=== PATIENT | male | born 1980 | race African-American/Black ===

== ENCOUNTER 2022-01-18 18:13 | Emergency (ER) | payer OTHER ==
[~2022-01-18] VITALS: Ht 185.4 cm; Wt 105.0 kg
[2022-01-18 18:43] VITALS: BP 133/91
[2022-01-18] MEDS ORDERED: DIAZEPAM 5 MG TABLET PO ONE (22:15)
[2022-01-18] MEDS ORDERED: KETOROLAC 60MG/2ML VIAL IM ONE (22:15)
[2022-01-18] MEDS ORDERED: TETANUS, DIPHTHERIA, PERTUSSIS VAC/PF 0.5ML (>10YR OLD) IM ONE (22:15)
[2022-01-18] MEDS ORDERED: LIDOCAINE 5% PATCH TOP SCH (22:15)
[2022-01-18] MEDS ORDERED: BACITRACIN 15GM TUBE TOP ONE (23:45)
== END 2022-01-19 00:21 | disposition home or self-care (01) ==
LOC: ER 18:13
DX: M54.2 Cervicalgia (principal); V43.62XA Car passenger injured in collision with other type car in traffic accident, initial encounter; Y93.89 Activity, other specified; Y92.488 Other paved roadways as the place of occurrence of the external cause; Y99.8 Other external cause status
CPT/HCPCS: 70450; 71045; 72125; 90471; 90715; 96372; 99284; J1885